=== PATIENT | male | born 1965 | race Caucasian/White ===

== ENCOUNTER 2017-05-19 13:18 | Emergency (ER) | payer MEDICAID, MEDICARE, OTHER ==
[~2017-05-19] VITALS: Ht 185.4 cm; Wt 85.0 kg
[2017-05-19] MEDS ORDERED: METHOCARBAMOL 750 MG TABLET PO ONE (14:00)
[2017-05-19] MEDS ORDERED: IBUPROFEN 200 MG TABLET PO ONE (14:00)
[2017-05-19] MEDS ORDERED: OXYcodone/APAP 10/325MG TABLET PO ONE (14:00)
[2017-05-19] MEDS ORDERED: IBUPROFEN 200 MG TABLET ONE (14:06)
[2017-05-19] MEDS ORDERED: OXYcodone/APAP 10/325MG TABLET ONE (14:06)
[2017-05-19] MEDS ORDERED: METHOCARBAMOL 750 MG TABLET ONE (14:06)
[2017-05-19 15:07] VITALS: BP 145/83
== END 2017-05-19 15:36 | disposition home or self-care (01) ==
LOC: ED 15:29
DX: S22.31XA Fracture of one rib, right side, initial encounter for closed fracture (principal); S23.3XXA Sprain of ligaments of thoracic spine, initial encounter; S33.5XXA Sprain of ligaments of lumbar spine, initial encounter; S16.1XXA Strain of muscle, fascia and tendon at neck level, initial encounter; E11.9 Type 2 diabetes mellitus without complications; M19.90 Unspecified osteoarthritis, unspecified site; V49.9XXA Car occupant (driver) (passenger) injured in unspecified traffic accident, initial encounter; Y93.89 Activity, other specified; Y92.89 Other specified places as the place of occurrence of the external cause; Y99.9 Unspecified external cause status
CPT/HCPCS: 99284

== ENCOUNTER → 2017-07-27 | Outpatient (CLI) | payer OTHER | END | disposition home or self-care (01) | LOC: WOUND 08:31 | PROVIDERS: ATTEND Internal Medicine Infectious Disease | DX: T87.89 Other complications of amputation stump (principal); E11.621 Type 2 diabetes mellitus with foot ulcer; L97.511 Non-pressure chronic ulcer of other part of right foot limited to breakdown of skin; E78.5 Hyperlipidemia, unspecified; I10 Essential (primary) hypertension; G89.4 Chronic pain syndrome; E11.42 Type 2 diabetes mellitus with diabetic polyneuropathy; E11.51 Type 2 diabetes mellitus with diabetic peripheral angiopathy without gangrene; M19.90 Unspecified osteoarthritis, unspecified site; F17.210 Nicotine dependence, cigarettes, uncomplicated; Y83.5 Amputation of limb(s) as the cause of abnormal reaction of the patient, or of later complication, without mention of misadventure at the time of the procedure | CPT/HCPCS: 11042; G0463; WOU0463 ==

== ENCOUNTER → 2017-08-10 | Outpatient (CLI) | payer OTHER | END | disposition home or self-care (01) | LOC: WOUND 13:06 | PROVIDERS: ATTEND Nurse Practitioner Family | DX: T87.89 Other complications of amputation stump (principal); E11.621 Type 2 diabetes mellitus with foot ulcer; L97.511 Non-pressure chronic ulcer of other part of right foot limited to breakdown of skin; E78.5 Hyperlipidemia, unspecified; I10 Essential (primary) hypertension; E11.42 Type 2 diabetes mellitus with diabetic polyneuropathy; E11.51 Type 2 diabetes mellitus with diabetic peripheral angiopathy without gangrene; M19.90 Unspecified osteoarthritis, unspecified site; F17.210 Nicotine dependence, cigarettes, uncomplicated; Z72.89 Other problems related to lifestyle; Y83.5 Amputation of limb(s) as the cause of abnormal reaction of the patient, or of later complication, without mention of misadventure at the time of the procedure | CPT/HCPCS: 11042 ==

== ENCOUNTER → 2017-08-24 | Outpatient (CLI) | payer OTHER | END | disposition home or self-care (01) | LOC: WOUND 10:27 | PROVIDERS: ATTEND Internal Medicine Infectious Disease | DX: T87.89 Other complications of amputation stump (principal); E11.621 Type 2 diabetes mellitus with foot ulcer; L97.512 Non-pressure chronic ulcer of other part of right foot with fat layer exposed; E11.42 Type 2 diabetes mellitus with diabetic polyneuropathy; E11.51 Type 2 diabetes mellitus with diabetic peripheral angiopathy without gangrene; E78.5 Hyperlipidemia, unspecified; I10 Essential (primary) hypertension; F17.210 Nicotine dependence, cigarettes, uncomplicated; M19.90 Unspecified osteoarthritis, unspecified site; Z72.89 Other problems related to lifestyle; Y83.5 Amputation of limb(s) as the cause of abnormal reaction of the patient, or of later complication, without mention of misadventure at the time of the procedure | CPT/HCPCS: G0463; WOU0463 ==

== ENCOUNTER → 2017-09-10 | Outpatient (CLI) | payer OTHER | END | disposition home or self-care (01) | LOC: CVU 11:58 | PROVIDERS: ATTEND Nurse Practitioner Family | DX: E11.621 Type 2 diabetes mellitus with foot ulcer (principal); L97.512 Non-pressure chronic ulcer of other part of right foot with fat layer exposed; E11.52 Type 2 diabetes mellitus with diabetic peripheral angiopathy with gangrene; I70.201 Unspecified atherosclerosis of native arteries of extremities, right leg; I10 Essential (primary) hypertension; I96 Gangrene, not elsewhere classified | CPT/HCPCS: 93922; 93925; 93970 ==

== ENCOUNTER 2017-10-08 05:16 | Inpatient (IN) | payer OTHER ==
[~2017-10-08] VITALS: Ht 182.9 cm; Wt 81.0 kg
[2017-10-08 06:06] VITALS: BP 117/77
[2017-10-08] MEDS ORDERED: AMLO10TA2 PO (06:06)
[2017-10-08] MEDS ORDERED: GABA600T2 PO (06:06)
[2017-10-08] MEDS ORDERED: TAMS0.4C2 PO (06:06)
[2017-10-08] MEDS ORDERED: INSU100V8 SQ (06:06)
[2017-10-08] MEDS ORDERED: ATOR40TA PO (06:06)
[2017-10-08] MEDS ORDERED: FURO20TA3 PO (06:06)
[2017-10-08] MEDS ORDERED: OXYC-307 PO (06:06)
[2017-10-08] MEDS ORDERED: INSU100C SQ-INSULIN (06:06)
[2017-10-08] MEDS ORDERED: BUPIVACAINE/PF 0.5% ONE (06:26)
[2017-10-08] MEDS ORDERED: LIDOCAINE/PF 1%, 30ML ONE (06:26)
[2017-10-08] MEDS ORDERED: MIDAZOLAM 1 MG/ML, 2ML ONE (06:30)
[2017-10-08] MEDS ORDERED: FENTANYL PF 100 MCG/2ML ONE ×2 (06:30→08:22)
[2017-10-08] MEDS ORDERED: LACTATED RINGERS 1,000 ML IV SCH (06:42)
[2017-10-08] MEDS ORDERED: FAMOTIDINE 20 MG TABLET ONE (06:48)
[2017-10-08 06:58] LABS: ALANINE AMINOTRANSFERASE 33 U/L (12-78); ALBUMIN 3.3 g/dL (3.4-5.0); ANION GAP 7 mmol/L (5-15); CALCIUM 8.4 mg/dL (8.5-10.1); CHLORIDE 107 mmol/L (98-107); CREATININE 1.63 mg/dL (0.7-1.3)
[2017-10-08] MEDS ORDERED: PNEUMOCOCCAL 23 VACCINE IM-VACC ONE (07:00)
[2017-10-08] MEDS ORDERED: FAMOTIDINE 20 MG TABLET PO ONE (07:00)
[2017-10-08] MEDS ORDERED: ONDANSETRON ODT 8 MG PO ONE (07:00)
[2017-10-08] MEDS ORDERED: GABAPENTIN 300 MG CAPSULE PO ONE (07:00)
[2017-10-08] MEDS ORDERED: ACETAMINOPHEN 500 MG TABLET PO ONE (07:00)
[2017-10-08 07:01] LABS: ALKALINE PHOSPHATASE 127 U/L (45-117); BILIRUBIN,TOTAL 0.3 mg/dL (0.2-1.0); TOTAL PROTEIN 8.3 g/dL (6.4-8.2)
[2017-10-08] MEDS ORDERED: MIDAZOLAM 1 MG/ML, 2ML IV PRN (07:30)
[2017-10-08] MEDS ORDERED: ALBUTEROL/IPRATROPIUM 2.5MG/0.5MG, 3 ML NPPB PRN (07:30)
[2017-10-08] MEDS ORDERED: ONDANSETRON ODT 8 MG PO PRN (07:30)
[2017-10-08] MEDS ORDERED: PROMETHAZINE 25 MG/ML, 1ML IV PRN (07:30)
[2017-10-08] MEDS ORDERED: MEPERIDINE/PF 25MG/0.5ML IVPush PRN (07:30)
[2017-10-08] MEDS ORDERED: hydrALAzine 20 MG/ML, 1ML IV PRN (07:30)
[2017-10-08] MEDS ORDERED: LABETALOL 5MG/ML, 20ML IV PRN (07:30)
[2017-10-08] MEDS ORDERED: SCOPOLAMINE PATCH, 1.5MG PATCH.TD72 TD PRN (07:30)
[2017-10-08] MEDS ORDERED: LORazepam 2 MG/ML, 1ML IVPush PRN (07:30)
[2017-10-08] MEDS ORDERED: PROMETHAZINE 25 MG/ML, 1ML IM PRN ×2 (07:30→10:30)
[2017-10-08] MEDS ORDERED: OXYcodone 5 MG/5 ML ORAL.SOL UDC PO PRN (07:30)
[2017-10-08] MEDS ORDERED: DIAZEPAM 5 MG/ML, 2ML IVPush PRN (07:30)
[2017-10-08] MEDS ORDERED: FENTANYL PF 100 MCG/2ML IV PRN (07:30)
[2017-10-08] MEDS ORDERED: CEFAZOLIN 1,000 MG ONE (07:41)
[2017-10-08] MEDS ORDERED: PROPOFOL 10 MG/ML, 20ML ONE (07:41)
[2017-10-08] MEDS ORDERED: DEXAMETHASONE 4 MG/ML, 1ML ONE (07:41)
[2017-10-08] MEDS ORDERED: KETOROLAC 30 MG/1 ML ONE (08:22)
[2017-10-08] MEDS ORDERED: OXYcodone 5 MG/5 ML ORAL.SOL UDC ONE ×2 (08:22→08:33)
[2017-10-08] MEDS ORDERED: KETOROLAC 30 MG/1 ML IVPush ONE (08:30)
[2017-10-08] MEDS ORDERED: MORPHINE SULFATE 4 MG/ML, 1ML ONE ×2 (08:41→08:51)
[2017-10-08] MEDS: MORPHINE SULFATE 4 MG/ML, 1ML IVPush PRN ×2 (08:43→08:54)
[2017-10-08] MEDS ORDERED: DIPHENHYDRAMINE 25 MG CAPSULE PO PRN (10:30)
[2017-10-08] MEDS ORDERED: ONDANSETRON 2MG/ML, 2ML IV PRN (10:30)
[2017-10-08] MEDS ORDERED: HYDROcodone/APAP 5/325 TABLET PO PRN (10:30)
[2017-10-08] MEDS ORDERED: INSULIN LISPRO 100 UNITS/ML, PEN SQ-INSULIN SCH (11:30)
[2017-10-08] MEDS: NICOTINE 21 MG/24 HR PATCH.TD24 TD SCH (11:39)
[2017-10-08] MEDS: OXYcodone 5 MG/5 ML ORAL.SOL UDC PO PRN ×2 (13:57→20:45)
[2017-10-08 14:21] VITALS: BP 146/89
[2017-10-08] MEDS: CEFAZOLIN PMX 2GM/50ML 50 ML IVPB SCH ×2 (15:00→22:35)
[2017-10-08] MEDS ORDERED: CEFAZOLIN PMX 2GM/100ML 100 ML IVPB SCH (15:00)
[2017-10-08] MEDS: HYDROmorphone 1 MG/ML, 1ML IV PRN ×4 (15:26→23:38)
[2017-10-08] MEDS: GABAPENTIN 300 MG CAPSULE PO SCH ×2 (15:27→20:38)
[2017-10-08] MEDS: KETOROLAC 30 MG/1 ML IV SCH ×2 (17:03→23:38)
[2017-10-08] MEDS: INSULIN LISPRO 100 UNITS/ML, PEN SQ-INSULIN SCH ×2 (17:04→22:36)
[2017-10-08 18:34] VITALS: BP 160/82
[2017-10-08] MEDS: FUROSEMIDE 20 MG TABLET PO SCH (20:37)
[2017-10-08] MEDS: ATORVASTATIN 40 MG TABLET PO SCH (20:38)
[2017-10-08] MEDS: SODIUM CHLORIDE FLUSH 10ML SYR IVF SCH (20:42)
[2017-10-08] MEDS: TEMAZEPAM 15 MG CAPSULE PO PRN (23:48)
[2017-10-09 00:57] VITALS: BP 180/95
[2017-10-09] MEDS: TEMAZEPAM 15 MG CAPSULE PO PRN (01:21)
[2017-10-09] MEDS ORDERED: hydrALAzine 20 MG/ML, 1ML IV PRN (02:00)
[2017-10-09] MEDS: HYDROmorphone 1 MG/ML, 1ML IV PRN ×8 (02:03→23:01)
[2017-10-09] MEDS: OXYcodone 5 MG/5 ML ORAL.SOL UDC PO PRN ×5 (02:04→23:44)
[2017-10-09 02:06] VITALS: BP 177/97
[2017-10-09] MEDS: GABAPENTIN 300 MG CAPSULE PO SCH ×4 (06:16→20:41)
[2017-10-09] MEDS: ENOXAPARIN 40 MG/0.4 ML SQ SCH (06:21)
[2017-10-09] MEDS: INSULIN LISPRO 100 UNITS/ML, PEN SQ-INSULIN SCH ×3 (07:25→16:10)
[2017-10-09] MEDS: KETOROLAC 30 MG/1 ML IV SCH (07:52)
[2017-10-09] MEDS: SODIUM CHLORIDE FLUSH 10ML SYR IVF SCH ×2 (07:53→20:43)
[2017-10-09] MEDS: TAMSULOSIN 0.4 MG CAP.ER.24H PO SCH (07:54)
[2017-10-09] MEDS: FUROSEMIDE 20 MG TABLET PO SCH ×2 (07:55→20:41)
[2017-10-09 07:59] VITALS: BP 153/82
[2017-10-09] MEDS: AMLODIPINE 5 MG TABLET PO SCH (10:11)
[2017-10-09 10:54] LABS: BASOPHILS # (AUTO) 0.05 x10^3/uL (0-0.1); BASOPHILS % (AUTO) 0 % (0-1); EOSINOPHILS # (AUTO) 0.03 x10^3/uL (0-0.4); EOSINOPHILS % (AUTO) 0 % (1-7); LYMPHOCYTES # (AUTO) 1.41 x10^3/uL (1-3.4); LYMPHOCYTES % (AUTO) 10 % (22-44); MD NO; MEAN CORPUSCULAR HEMOGLOBIN 30.7 pg (27.5-34.5); MEAN CORPUSCULAR HGB CONC 33.7 g/dL (33.2-36.2); MEAN CORPUSCULAR VOLUME 91.1 fL (81-97); MONOCYTES # (AUTO) 0.78 x10^3/uL (0.2-0.8); MONOCYTES % (AUTO) 6 % (2-9); NEUTROPHILS # (AUTO) 11.85 x10^3/uL (1.8-6.8); NEUTROPHILS % (AUTO) 84 % (42-75); PLATELET COUNT 289 x10^3/uL (130-400); RED BLOOD COUNT 3.93 x10^6/uL (4.38-5.82); RED CELL DISTRIBUTION WIDTH 14.1 % (9.4-14.8)
[2017-10-09 11:03] LABS: ANION GAP 7 mmol/L (5-15); CALCIUM 8.4 mg/dL (8.5-10.1); CHLORIDE 102 mmol/L (98-107); CREATININE 1.39 mg/dL (0.7-1.3)
[2017-10-09] MEDS: NICOTINE 21 MG/24 HR PATCH.TD24 TD SCH ×2 (11:27→20:29)
[2017-10-09 13:54] VITALS: BP 128/86
[2017-10-09 19:08] VITALS: BP 138/82
[2017-10-09] MEDS: ATORVASTATIN 40 MG TABLET PO SCH (20:42)
[2017-10-09] MEDS ORDERED: INSULIN GLARGINE 100 UNITS/ML, PEN SQ-INSULIN SCH ×2 (21:00)
[2017-10-10] MEDS: HYDROmorphone 1 MG/ML, 1ML IV PRN ×6 (01:04→15:45)
[2017-10-10 01:19] VITALS: BP 147/89
[2017-10-10] MEDS: ENOXAPARIN 40 MG/0.4 ML SQ SCH (06:10)
[2017-10-10] MEDS: GABAPENTIN 300 MG CAPSULE PO SCH ×3 (06:10→17:05)
[2017-10-10 07:37] VITALS: BP 146/81
[2017-10-10] MEDS: INSULIN LISPRO 100 UNITS/ML, PEN SQ-INSULIN SCH ×3 (08:00→17:00)
[2017-10-10 08:14] LABS: BASOPHILS % (AUTO) 1 % (0-1); EOSINOPHILS # (AUTO) 0.22 x10^3/uL (0-0.4); EOSINOPHILS % (AUTO) 2 % (1-7); LYMPHOCYTES # (AUTO) 2.76 x10^3/uL (1-3.4); LYMPHOCYTES % (AUTO) 22 % (22-44); MD NO; MEAN CORPUSCULAR HEMOGLOBIN 30.3 pg (27.5-34.5); MEAN CORPUSCULAR HGB CONC 33.2 g/dL (33.2-36.2); MEAN PLATELET VOLUME 9.9 fL (7.4-10.4); MONOCYTES # (AUTO) 0.94 x10^3/uL (0.2-0.8); MONOCYTES % (AUTO) 8 % (2-9); NEUTROPHILS # (AUTO) 8.32 x10^3/uL (1.8-6.8); NEUTROPHILS % (AUTO) 67 % (42-75); PLATELET COUNT 303 x10^3/uL (130-400); RED BLOOD COUNT 3.78 x10^6/uL (4.38-5.82); RED CELL DISTRIBUTION WIDTH 14.1 % (9.4-14.8)
[2017-10-10 08:23] LABS: ANION GAP 6 mmol/L (5-15); CALCIUM 8.3 mg/dL (8.5-10.1); CHLORIDE 104 mmol/L (98-107)
[2017-10-10] MEDS: AMLODIPINE 5 MG TABLET PO SCH (08:45)
[2017-10-10] MEDS: OXYcodone 5 MG/5 ML ORAL.SOL UDC PO PRN ×3 (08:45→17:05)
[2017-10-10] MEDS: TAMSULOSIN 0.4 MG CAP.ER.24H PO SCH (08:45)
[2017-10-10] MEDS: FUROSEMIDE 20 MG TABLET PO SCH (08:45)
[2017-10-10] MEDS: SODIUM CHLORIDE FLUSH 10ML SYR IVF SCH (09:00)
[2017-10-10] MEDS: NICOTINE 21 MG/24 HR PATCH.TD24 TD SCH (11:30)
[2017-10-10 13:18] VITALS: BP 120/76
[2017-10-10] MEDS ORDERED: GABA600T PO (14:36)
[2017-10-10] MEDS ORDERED: OXYC5TAB3 PO (14:36)
== END 2017-10-10 17:00 | disposition home or self-care (01) | DRG 240 ==
LOC: OUT 05:16 → 4NOR 09:30 → OUT 09:51 → OBSVTOIN 10-09 10:44
PROVIDERS: ADMIT Orthopaedic Surgery Foot and Ankle Surgery; ATTEND Orthopaedic Surgery Foot and Ankle Surgery
PROC: 0Y6H0Z3 Detachment at Right Lower Leg, Low, Open Approach (ICD-10-PCS; principal; 2017-10-08 07:00)
DX: E11.51 Type 2 diabetes mellitus with diabetic peripheral angiopathy without gangrene (principal); E44.1 Mild protein-calorie malnutrition; N17.9 Acute kidney failure, unspecified; E11.621 Type 2 diabetes mellitus with foot ulcer; E88.09 Other disorders of plasma-protein metabolism, not elsewhere classified; N40.0 Benign prostatic hyperplasia without lower urinary tract symptoms; L97.509 Non-pressure chronic ulcer of other part of unspecified foot with unspecified severity; M19.90 Unspecified osteoarthritis, unspecified site; G89.29 Other chronic pain; I10 Essential (primary) hypertension; F17.210 Nicotine dependence, cigarettes, uncomplicated; Z79.4 Long term (current) use of insulin; Z79.899 Other long term (current) drug therapy; Z89.439 Acquired absence of unspecified foot; L97.519 Non-pressure chronic ulcer of other part of right foot with unspecified severity
CPT/HCPCS: 36415; 71045; 78582; 80048; 80053; 82962; 83735; 84100; 85025; 85379; 88307; 93005; G0378; J0690; J1100; J1170; J1650; J1885; J2250; J2704; J3010; J3490; Q0162; A9540; A9558; C9898; J0360; J1815; J7120

== ENCOUNTER → 2018-09-30 | Outpatient (CLI) | payer MEDICARE ==
[~2018-09-30] MED LIST: AMLO10TA8 PO; ATOR40TA PO; FURO20TA3 PO; GABA600T PO; GABA600T7 PO; INSU100C SQ-INSULIN; INSU100V8 SQ; OXYC-307 PO; OXYC5TAB3 PO; TAMS0.4C2 PO
== END | disposition home or self-care (01) ==
LOC: CARD 10:11
PROVIDERS: ATTEND Family Medicine
DX: G56.00 Carpal tunnel syndrome, unspecified upper limb (principal)
CPT/HCPCS: 95886; 95908

== ENCOUNTER 2019-09-09 09:35 | Emergency (ER) | payer MEDICARE ==
[~2019-09-09] VITALS: Ht 182.9 cm; Wt 85.6 kg
[2019-09-09 09:38] VITALS: BP 163/85
--- NOTE | 2019-09-09 10:00 | NUR ---
PT HAS WOUND LOWER LEG. PT STATES HE DID NOT NOTICE ANYTHING UNTIL THIS MORNING WHEN HE NOTICED THIS WOUND THAT SUDDENDLY DEVELOPED.
[2019-09-09 10:30] LABS: BASOPHILS # (AUTO) 0.05 x10^3/uL (0-0.1); BASOPHILS % (AUTO) 0 % (0-1); EOSINOPHILS # (AUTO) 0.12 x10^3/uL (0-0.4); EOSINOPHILS % (AUTO) 1 % (1-7); LYMPHOCYTES # (AUTO) 1.08 x10^3/uL (1-3.4); LYMPHOCYTES % (AUTO) 9 % (22-44); MD NO; MEAN CORPUSCULAR HEMOGLOBIN 30.6 pg (27.5-34.5); MEAN CORPUSCULAR HGB CONC 33.5 g/dL (33.2-36.2); MEAN CORPUSCULAR VOLUME 91.3 fL (81-97); MEAN PLATELET VOLUME 11.1 fL (7.4-10.4); MONOCYTES # (AUTO) 0.62 x10^3/uL (0.2-0.8); MONOCYTES % (AUTO) 5 % (2-9); NEUTROPHILS # (AUTO) 10.23 x10^3/uL (1.8-6.8); NEUTROPHILS % (AUTO) 85 % (42-75); PLATELET COUNT 214 x10^3/uL (130-400); RED BLOOD COUNT 4.79 x10^6/uL (4.38-5.82); RED CELL DISTRIBUTION WIDTH 14.4 % (9.4-14.8)
[2019-09-09] MEDS ORDERED: DIPH,PERTUSS(ACELL),TET VAC/PF 0.5 ML IM-VACC ONE ×2 (10:30→10:33)
[2019-09-09] MEDS ORDERED: AMPICILLIN/SULBACTAM 3 GM in SODIUM CHLORIDE 0.9% 100 ML IV ONE (10:30)
[2019-09-09] MEDS ORDERED: SODIUM CHLORIDE FLUSH 10ML SYR IVF ONE (10:30)
[2019-09-09 10:40] LABS: ALANINE AMINOTRANSFERASE 25 U/L (12-78); ALBUMIN 3.8 g/dL (3.4-5.0); ANION GAP 7 mmol/L (5-15); CALCIUM 9.1 mg/dL (8.5-10.1); CHLORIDE 108 mmol/L (98-107); CREATININE 1.67 mg/dL (0.7-1.3)
[2019-09-09 10:42] LABS: ALKALINE PHOSPHATASE 68 U/L (45-117); BILIRUBIN,TOTAL 0.6 mg/dL (0.2-1.0); TOTAL PROTEIN 7.6 g/dL (6.4-8.2)
[2019-09-09 11:13] LABS: HCT (SEDRATE) 43.8 % (39.2-51.8)
[2019-09-09] MEDS ORDERED: SODIUM CHLORIDE 0.9% 1,000ML IVBOLUS ONE (11:30)
--- NOTE | 2019-09-09 12:11 | NUR ---
AFTER WOUND CLEANED AND DRESSED BY TECH, PT AMBULATED TO BATHROOM WITHOUT ASSISTANCE.
== END 2019-09-09 12:44 | disposition home or self-care (01) ==
LOC: ED 10:38
DX: L03.116 Cellulitis of left lower limb (principal); S90.522A Blister (nonthermal), left ankle, initial encounter; E11.9 Type 2 diabetes mellitus without complications; Z89.511 Acquired absence of right leg below knee; X58.XXXA Exposure to other specified factors, initial encounter; Y93.89 Activity, other specified; Y92.89 Other specified places as the place of occurrence of the external cause; Y99.8 Other external cause status
CPT/HCPCS: 36415; 73610; 73630; 80053; 85025; 85651; 87040; 90471; 90715; 96365; 96366; 99284; J0295; J7030

== ENCOUNTER 2019-09-11 07:45 | Emergency (ER) | payer MEDICARE ==
[~2019-09-11] VITALS: Ht 182.9 cm; Wt 85.2 kg
[2019-09-11 07:47] VITALS: BP 176/85
== END 2019-09-11 08:17 | disposition home or self-care (01) ==
LOC: ED 08:10
DX: L03.116 Cellulitis of left lower limb (principal); E11.9 Type 2 diabetes mellitus without complications
CPT/HCPCS: 82962; 99283

== ENCOUNTER → 2019-09-18 | Outpatient (CLI) | payer MEDICARE | END | disposition home or self-care (01) | LOC: WOUND 07:45 | PROVIDERS: ATTEND Internal Medicine | DX: T87.89 Other complications of amputation stump (principal); E11.621 Type 2 diabetes mellitus with foot ulcer; L97.522 Non-pressure chronic ulcer of other part of left foot with fat layer exposed; E11.622 Type 2 diabetes mellitus with other skin ulcer; L97.321 Non-pressure chronic ulcer of left ankle limited to breakdown of skin; E11.40 Type 2 diabetes mellitus with diabetic neuropathy, unspecified; L40.0 Psoriasis vulgaris; F17.210 Nicotine dependence, cigarettes, uncomplicated; E78.5 Hyperlipidemia, unspecified; I10 Essential (primary) hypertension; E11.42 Type 2 diabetes mellitus with diabetic polyneuropathy; I73.9 Peripheral vascular disease, unspecified; M10.9 Gout, unspecified; M19.90 Unspecified osteoarthritis, unspecified site; Z92.25 Personal history of immunosuppression therapy; Z89.511 Acquired absence of right leg below knee; Z71.6 Tobacco abuse counseling; Y83.5 Amputation of limb(s) as the cause of abnormal reaction of the patient, or of later complication, without mention of misadventure at the time of the procedure | CPT/HCPCS: 99215 ==

== ENCOUNTER 2019-09-25 10:30 | Outpatient (CLI) | payer MEDICARE | END 2019-09-25 23:59 | disposition home or self-care (01) | LOC: WOUND 10:30 | PROVIDERS: ATTEND Internal Medicine | DX: T87.89 Other complications of amputation stump (principal); E11.621 Type 2 diabetes mellitus with foot ulcer; L97.522 Non-pressure chronic ulcer of other part of left foot with fat layer exposed; E11.622 Type 2 diabetes mellitus with other skin ulcer; L97.321 Non-pressure chronic ulcer of left ankle limited to breakdown of skin; L97.811 Non-pressure chronic ulcer of other part of right lower leg limited to breakdown of skin; E11.40 Type 2 diabetes mellitus with diabetic neuropathy, unspecified; L40.0 Psoriasis vulgaris; F17.210 Nicotine dependence, cigarettes, uncomplicated; E78.5 Hyperlipidemia, unspecified; I10 Essential (primary) hypertension; E11.42 Type 2 diabetes mellitus with diabetic polyneuropathy; E11.51 Type 2 diabetes mellitus with diabetic peripheral angiopathy without gangrene; M10.9 Gout, unspecified; M19.90 Unspecified osteoarthritis, unspecified site; Z92.25 Personal history of immunosuppression therapy; Z89.511 Acquired absence of right leg below knee; Y83.5 Amputation of limb(s) as the cause of abnormal reaction of the patient, or of later complication, without mention of misadventure at the time of the procedure | CPT/HCPCS: 97597 ==